=== PATIENT | female | born 1980 ===

== ENCOUNTER 2017-05-05 08:07 | Emergency (ER) | payer OTHER ==
[~2017-05-05] VITALS: Ht 167.6 cm; Wt 68.0 kg
[2017-05-05] MEDS ORDERED: TUSSI-PRES LIQ118 ML PO (09:12)
[2017-05-05] MEDS ORDERED: TUSSIONEX PENN115 ML PO (09:12)
[2017-05-05] MEDS ORDERED: ZITHROMAX500 MG PO (09:12)
== END 2017-05-05 09:17 | disposition home or self-care (01) ==
LOC: ER 08:07
DX: J40 Bronchitis, not specified as acute or chronic (principal)

== ENCOUNTER → 2020-05-22 | Emergency (ER) | payer OTHER ==
[~2020-05-22] VITALS: Ht 167.6 cm; Wt 63.5 kg
[~2020-05-22] MED LIST: TUSSI-PRES LIQ118 ML PO; TUSSIONEX PENN115 ML PO; ZITHROMAX500 MG PO
== END | disposition home or self-care (01) ==
LOC: ER 21:08
DX: G44.209 Tension-type headache, unspecified, not intractable (principal); E86.0 Dehydration; Z03.818 Encounter for observation for suspected exposure to other biological agents ruled out